=== PATIENT | male | born 1960 | race Two or more races ===

== ENCOUNTER 2024-05-09 10:19 | Inpatient (IN) | payer MEDICARE, MEDICAID ==
[~2024-05-09] VITALS: Ht 170.2 cm; Wt 79.7 kg
[2024-05-09 11:05] LABS: BASOPHILS % (AUTO) 0.4 % (0-1); EOSINOPHILS # (AUTO) 0.1 X10'3 (0-0.9); EOSINOPHILS % (AUTO) 0.5 % (0-6); HEMATOCRIT 27.6 % (42.0-52.0); HEMOGLOBIN 9.1 g/dl (14.0-17.9); LYMPHOCYTES # (AUTO) 2.6 X10'3 (1.1-4.8); LYMPHOCYTES % (AUTO) 21.6 % (21-51); MEAN CORPUSCULAR HEMOGLOBIN 30.4 PG (27.0-31.0); MEAN CORPUSCULAR VOLUME 92.3 FL (78-98); MEAN PLATELET VOLUME 8.2 FL (7.4-10.4); MONOCYTES # (AUTO) 0.9 X10'3 (0-0.9); MONOCYTES % (AUTO) 7.5 % (2-12); NEUTROPHILS # (AUTO) 8.5 X10'3 (1.8-7.7); PLATELET COUNT 266 X10'3 (140-440); RED CELL DISTRIBUTION WIDTH 14.2 % (11.5-14.5); WHITE BLOOD COUNT 12.1 X10'3 (4.5-11.0)
[2024-05-09 11:16] LABS: APTT 23 SECONDS (22-32); PROTHROMBIN TIME 10.8 SECONDS (9.0-12.0)
[2024-05-09 11:18] LABS: ALANINE AMINOTRANSFERASE 30 U/L (12-78); ALBUMIN 3.6 G/DL (3.4-5.0); ALBUMIN/GLOBULIN RATIO 1.1 (1.1-1.5); ALKALINE PHOSPHATASE 73 IU/L (46-116); AMYLASE 67 U/L (25-115); ANION GAP 11 (8-16); ASPARTATE AMINO TRANSFERASE 17 U/L (10-37); BILIRUBIN,TOTAL 0.3 MG/DL (0.1-1.0); BLOOD UREA NITROGEN 18 MG/DL (7-18); BUN/CREATININE RATIO 14.8 (10.0-20.0); CALCIUM 8.7 MG/DL (8.5-10.1); CHLORIDE 104 MMOL/L (99-107); CREATININE 1.22 MG/DL (0.60-1.10); GLUCOSE 144 MG/DL (70-104); LIPASE 63 U/L (16-77); POTASSIUM 3.3 MMOL/L (3.5-5.1); SODIUM 140 MMOL/L (135-145); TOTAL CARBON DIOXIDE 24.8 MMOL/L (24-32); eCRCL 58 ML/MIN; eGFR 60 ML/MIN
[2024-05-09] MEDS ORDERED: potassium Cl 40MEQ/1/2NS 520ml 520 ML IV PRN (13:10)
[2024-05-09] MEDS ORDERED: potassium Cl 20 mEq SR tablet PO PRN (13:10)
[2024-05-09] MEDS ORDERED: magnesium sulf-water 4G/100mL 100 ML IV PRN (13:10)
[2024-05-09] MEDS ORDERED: magnesium sulf-water 2g/50mL 50 ML IV PRN (13:10)
[2024-05-09] MEDS ORDERED: magnesium Cl slow-release 64mg tablet PO PRN (13:10)
[2024-05-09] MEDS ORDERED: magnesium hydroxide 30ml (MOM) UD suspension PO PRN (13:10)
[2024-05-09] MEDS ORDERED: morphine 2 MG/ML inj. syringe IV PRN ×2 (13:10)
[2024-05-09] MEDS ORDERED: acetaminophen 325mg tablet PO PRN (13:10)
[2024-05-09] MEDS: normal saline 1000ml 1,000 ML IV SCH (13:39)
[2024-05-09] MEDS ORDERED: LEVO5TAB13 PO (14:39)
[2024-05-09] MEDS ORDERED: GABA-530 PO ×2 (14:39→22:55)
[2024-05-09] MEDS ORDERED: FLUTICASONE (14:39)
[2024-05-09] MEDS ORDERED: VALS80TA32 PO (14:39)
[2024-05-09] MEDS: pantoprazole 40 MG vial IV SCH (15:43)
[2024-05-09 18:27] LABS: HEMATOCRIT 25.1 % (42.0-52.0); HEMOGLOBIN 8.1 g/dl (14.0-17.9); MEAN CORPUSCULAR HGB CONC 32.4 g/dL (33.0-36.5); MEAN CORPUSCULAR VOLUME 92.6 FL (78-98); MEAN PLATELET VOLUME 8.4 FL (7.4-10.4); PLATELET COUNT 244 X10'3 (140-440); RED BLOOD COUNT 2.71 X10'6 (4.70-6.10); WHITE BLOOD COUNT 11.4 X10'3 (4.5-11.0)
[2024-05-09 21:59] LABS: BILIRUBIN,URINE NEGATIVE (Neg); CLARITY,URINE CLEAR (Clear); COLOR,URINE YELLOW (Yellow); GLUCOSE, URINE NEGATIVE (Neg); KETONES,URINE NEGATIVE (Neg); LEUKOCYTE ESTERASE ,URINE NEGATIVE (Neg); NITRITES, URINE NEGATIVE (Neg); OCCULT BLOOD,URINE NEGATIVE (Neg); PROTEIN,URINE NEGATIVE (Neg); UROBILINOGEN,URINE 0.2 E.U/dL (0.2-1.0)
[2024-05-09 22:11] LABS: UA COLLECTION TYPE CLN CATCH MIDSTREAM
[2024-05-09 22:21] LABS: URINE AMPHETAMINE SCREEN NEGATIVE (Neg); URINE BARBITUATE SCREEN NEGATIVE (Neg); URINE BENZODIAZEPINES SCREEN NEGATIVE (Neg); URINE CANNABINOID SCREEN POSITIVE (Neg); URINE COCAINE SCREEN NEGATIVE (Neg); URINE METHADONE SCREEN NEGATIVE (Neg); URINE OPIATE SCREEN NEGATIVE (Neg); URINE PHENCYCLIDINE SCREEN NEGATIVE (Neg)
[2024-05-09 22:40] VITALS: BP 140/92; PULSE 77; RESP 16; TEMP 99.2; O2SAT 100
[2024-05-09] MEDS: K and/or MAG REPLACEMENT MC SCH (23:11)
[2024-05-09 23:14] LABS: MEAN CORPUSCULAR HEMOGLOBIN 30.8 PG (27.0-31.0); MEAN CORPUSCULAR HGB CONC 33.4 g/dL (33.0-36.5); MEAN CORPUSCULAR VOLUME 92.5 FL (78-98); MEAN PLATELET VOLUME 7.9 FL (7.4-10.4); PLATELET COUNT 237 X10'3 (140-440); RED CELL DISTRIBUTION WIDTH 14.2 % (11.5-14.5)
[2024-05-09] MEDS: potassium Cl 20 mEq SR tablet PO PRN (23:23)
[2024-05-10] VITALS (10 sets, daily range): BP systolic 107–127; BP diastolic 59–73; PULSE 66–74; RESP 14–17; TEMP 98–98.8; O2SAT 97–100
[2024-05-10] MEDS: ondansetron/PF 4mg/2ml inj IV PRN (05:00)
[2024-05-10 05:50] LABS: BASOPHILS % (AUTO) 0.4 % (0-1); EOSINOPHILS # (AUTO) 0.1 X10'3 (0-0.9); EOSINOPHILS % (AUTO) 1.5 % (0-6); HEMOGLOBIN 7.2 g/dl (14.0-17.9); LYMPHOCYTES # (AUTO) 2.3 X10'3 (1.1-4.8); LYMPHOCYTES % (AUTO) 24.1 % (21-51); MEAN CORPUSCULAR HEMOGLOBIN 31.4 PG (27.0-31.0); MEAN CORPUSCULAR HGB CONC 33.9 g/dL (33.0-36.5); MEAN CORPUSCULAR VOLUME 92.4 FL (78-98); MEAN PLATELET VOLUME 8.4 FL (7.4-10.4); MONOCYTES # (AUTO) 0.8 X10'3 (0-0.9); MONOCYTES % (AUTO) 8.2 % (2-12); NEUTROPHILS # (AUTO) 6.3 X10'3 (1.8-7.7); NEUTROPHILS % (AUTO) 65.8 % (42-75); PLATELET COUNT 232 X10'3 (140-440); RED BLOOD COUNT 2.28 X10'6 (4.70-6.10); RED CELL DISTRIBUTION WIDTH 14.1 % (11.5-14.5); WHITE BLOOD COUNT 9.6 X10'3 (4.5-11.0)
[2024-05-10 06:00] LABS: HEMATOCRIT 21.1 % (42.0-52.0)
[2024-05-10 06:23] LABS: ALANINE AMINOTRANSFERASE 27 U/L (12-78); ALBUMIN 2.9 G/DL (3.4-5.0); ALKALINE PHOSPHATASE 57 IU/L (46-116); ANION GAP 9 (8-16); ASPARTATE AMINO TRANSFERASE 12 U/L (10-37); BILIRUBIN,TOTAL 0.4 MG/DL (0.1-1.0); BLOOD UREA NITROGEN 20 MG/DL (7-18); CALCIUM 8.1 MG/DL (8.5-10.1); CHLORIDE 109 MMOL/L (99-107); CHOL/HDL RATIO 3.5 (0.00-4.99); CHOLESTEROL 98 MG/DL (0-200); CREATININE 1.05 MG/DL (0.60-1.10); GLUCOSE 92 MG/DL (70-104); HDL CHOLESTEROL 28 MG/DL (35-60); LDL CHOLESTEROL 61 MG/DL (50-100); MAGNESIUM 1.9 MG/DL (1.5-2.4); POTASSIUM 3.9 MMOL/L (3.5-5.1); SODIUM 142 MMOL/L (135-145); TOTAL CARBON DIOXIDE 24.3 MMOL/L (24-32); TOTAL PROTEIN 5.7 G/DL (6.4-8.2); TRIGLYCERIDES 76 MG/DL (20-135); eCRCL 67 ML/MIN; eGFR 71 ML/MIN
[2024-05-10 06:34] LABS: HEMOGLOBIN A1C 5.3 % (4.5-6.2)
[2024-05-10] MEDS: CefTRIAXone/D5W-Rocephin 1gm 50 ML IV SCH (09:39)
[2024-05-10 12:09] LABS: HEMOGLOBIN 7.3 g/dl (14.0-17.9); MEAN CORPUSCULAR HEMOGLOBIN 31.4 PG (27.0-31.0); MEAN CORPUSCULAR HGB CONC 33.5 g/dL (33.0-36.5); MEAN CORPUSCULAR VOLUME 93.6 FL (78-98); MEAN PLATELET VOLUME 7.9 FL (7.4-10.4); PLATELET COUNT 246 X10'3 (140-440); RED BLOOD COUNT 2.34 X10'6 (4.70-6.10); RED CELL DISTRIBUTION WIDTH 14.3 % (11.5-14.5)
[2024-05-10 12:12] LABS: HEMATOCRIT 21.9 % (42.0-52.0)
--- NOTE | 2024-05-10 12:22 | NUR ---
Dr. Engle notified of patient's H/H. No new orders at this time.
[2024-05-10] MEDS: metroNIDAZOLE-Flagyl 500mg/NS 100 ML IV SCH (15:29)
--- NOTE | 2024-05-10 17:55 | NUR ---
Received call from patient's daughter Franci stating patient c/o his belly is swollen and getting bigger. Patient ok to give Franci information. Let her know that patient has not c/o any pain or discomfort and abd not distended, updated patient's daughter that H/H being monitored and awaiting colonoscopy records from [facility] per Dr. Engle. Medical records from [facility] were requested. Went to assess patient and denies pain or discomfort or abd distention. Patient abd soft.
--- NOTE | 2024-05-10 18:36 | NUR ---
Problems reprioritized. Patient report given, questions answered & plan of care reviewed with RODOLFO Kenney.
--- NOTE | 2024-05-10 18:37 | NUR ---
Patient in room [facility]TH[facility] 4014. I have received report from RODOLFO Eid and had the opportunity to ask questions and assume patient care.
[2024-05-10 19:02] LABS: MEAN CORPUSCULAR HEMOGLOBIN 30.7 PG (27.0-31.0); MEAN CORPUSCULAR HGB CONC 32.9 g/dL (33.0-36.5); MEAN CORPUSCULAR VOLUME 93.3 FL (78-98); MEAN PLATELET VOLUME 7.9 FL (7.4-10.4); PLATELET COUNT 259 X10'3 (140-440); RED CELL DISTRIBUTION WIDTH 14.7 % (11.5-14.5); WHITE BLOOD COUNT 10.4 X10'3 (4.5-11.0)
[2024-05-10 19:15] LABS: HEMATOCRIT 21.4 % (42.0-52.0)
--- NOTE | 2024-05-11 06:35 | NUR ---
Problems reprioritized. Patient report given, questions answered & plan of care reviewed with RODOLFO Amador.
[2024-05-11 07:05] VITALS: BP 177/70; PULSE 72; RESP 18; TEMP 97.3; O2SAT 98
[2024-05-11 07:23] LABS: BASOPHILS % (AUTO) 0.4 % (0-1); EOSINOPHILS # (AUTO) 0.2 X10'3 (0-0.9); EOSINOPHILS % (AUTO) 1.6 % (0-6); HEMOGLOBIN 8.1 g/dl (14.0-17.9); LYMPHOCYTES # (AUTO) 2.6 X10'3 (1.1-4.8); LYMPHOCYTES % (AUTO) 25.7 % (21-51); MEAN CORPUSCULAR HEMOGLOBIN 30.6 PG (27.0-31.0); MEAN CORPUSCULAR HGB CONC 33.7 g/dL (33.0-36.5); MEAN CORPUSCULAR VOLUME 90.9 FL (78-98); MEAN PLATELET VOLUME 7.8 FL (7.4-10.4); MONOCYTES # (AUTO) 0.8 X10'3 (0-0.9); MONOCYTES % (AUTO) 7.9 % (2-12); NEUTROPHILS # (AUTO) 6.6 X10'3 (1.8-7.7); NEUTROPHILS % (AUTO) 64.4 % (42-75); PLATELET COUNT 249 X10'3 (140-440); RED BLOOD COUNT 2.65 X10'6 (4.70-6.10); RED CELL DISTRIBUTION WIDTH 14.9 % (11.5-14.5); WHITE BLOOD COUNT 10.2 X10'3 (4.5-11.0)
[2024-05-11 07:42] LABS: ALANINE AMINOTRANSFERASE 25 U/L (12-78); ALKALINE PHOSPHATASE 56 IU/L (46-116); ANION GAP 8 (8-16); ASPARTATE AMINO TRANSFERASE 18 U/L (10-37); BILIRUBIN,TOTAL 0.5 MG/DL (0.1-1.0); BLOOD UREA NITROGEN 18 MG/DL (7-18); BUN/CREATININE RATIO 18.6 (10.0-20.0); CALCIUM 8.1 MG/DL (8.5-10.1); CHLORIDE 109 MMOL/L (99-107); CREATININE 0.97 MG/DL (0.60-1.10); GLUCOSE 79 MG/DL (70-104); POTASSIUM 3.7 MMOL/L (3.5-5.1); SODIUM 140 MMOL/L (135-145); TOTAL CARBON DIOXIDE 22.8 MMOL/L (24-32); eCRCL 73 ML/MIN; eGFR 78 ML/MIN
[2024-05-11 10:00] VITALS: BP 138/73; PULSE 66; RESP 18; TEMP 98.4; O2SAT 99
[2024-05-11 13:28] LABS: HEMATOCRIT 24.5 % (42.0-52.0); HEMOGLOBIN 8.2 g/dl (14.0-17.9); MEAN CORPUSCULAR HEMOGLOBIN 30.4 PG (27.0-31.0); MEAN CORPUSCULAR HGB CONC 33.4 g/dL (33.0-36.5); MEAN CORPUSCULAR VOLUME 91.1 FL (78-98); MEAN PLATELET VOLUME 7.6 FL (7.4-10.4); PLATELET COUNT 261 X10'3 (140-440); RED BLOOD COUNT 2.69 X10'6 (4.70-6.10); RED CELL DISTRIBUTION WIDTH 15.1 % (11.5-14.5); WHITE BLOOD COUNT 10.2 X10'3 (4.5-11.0)
[2024-05-11] MEDS ORDERED: LACT1CAP26 PO (17:24)
[2024-05-11] MEDS ORDERED: METR-159 PO (17:28)
[2024-05-11] MEDS ORDERED: CEFD300C3 PO (17:28)
[2024-05-11 17:40] VITALS: BP 126/74; PULSE 79; RESP 16; TEMP 97.1; O2SAT 99
--- NOTE | 2024-05-11 18:34 | NUR ---
Problems reprioritized. Patient report given, questions answered & plan of care reviewed with prakash randall rn.
--- NOTE | 2024-05-11 18:40 | NUR ---
Patient in room ORTHO 4014. I have received report from MEME REYNOLDS and had the opportunity to ask questions and assume patient care. PATIENT READY FOR DISCHARGE TONIGHT WAITING FOR FRIEND/ROOMMATE FOR [employer] SALES.
[2024-05-11] MEDS ORDERED: PANT40TA54 PO (18:52)
--- NOTE | 2024-05-11 19:30 | NUR ---
PIV D/C'D WITH [facility] INTACT. DISCHARGE INSTRUCTIONS REVIEWED WITH PATIENT AND VERBALIZED UNDERSTANDING. DISCHARGE PAPER SIGNED BY PATIENT.
--- NOTE | 2024-05-11 19:45 | NUR ---
PATIENT LEFT WITH FRIEND/ROOMMATE IN A WHEELCHAIR WITH STAFF TO THE FRONT DOOR.
[2024-05-12 06:11] LABS: HBSAG SCREEN Negative (Negative); HEPATITIS C VIRUS ANTIBODY Non Reactive (Non Reactive)
== END 2024-05-11 19:45 | disposition home or self-care (01) | DRG 811 ==
LOC: ER 10:19 → ED HOLD 13:17 → EDBEDREQ 20:51 → ORTHO 4S 22:37
PROVIDERS: ADMIT Family Medicine; ATTEND Family Medicine
PROC: 30233N1 Transfusion of Nonautologous Red Blood Cells into Peripheral Vein, Percutaneous Approach (ICD-10-PCS; principal; 2024-05-10)
PROC: CD171ZZ Planar Nuclear Medicine Imaging of Gastrointestinal Tract using Technetium 99m (Tc-99m) (ICD-10-PCS; 2024-05-11)
DX: D64.89 Other specified anemias (principal); K57.31 Diverticulosis of large intestine without perforation or abscess with bleeding; R73.9 Hyperglycemia, unspecified; E66.8 Other obesity; I10 Essential (primary) hypertension; F19.10 Other psychoactive substance abuse, uncomplicated; G89.29 Other chronic pain; M54.9 Dorsalgia, unspecified; D72.829 Elevated white blood cell count, unspecified; E87.6 Hypokalemia; Z68.27 Body mass index [BMI] 27.0-27.9, adult
CPT/HCPCS: 36415; 36430; 71045; 78278; 80053; 80061; 80305; 81003; 82150; 83036; 83690; 83735; 85025; 85027; 85610; 85730; 86803; 86885; 86900; 86901; 86920; 87081; 87340; 87522; 99285; A9560; G0378; J0696; J2405; J2470; J3490; J7030; J7040; P9016